=== PATIENT | female | born 1935 | race Caucasian/White ===

== ENCOUNTER 2020-08-07 11:21 | Emergency (ER) | payer OTHER ==
[~2020-08-07] VITALS: Ht 162.6 cm; Wt 49.9 kg
[2020-08-07 11:32] VITALS: BP 99/55
--- NOTE | 2020-08-07 11:32 | NUR ---
ED Nurse Note: Brought in by ambulance on gurney, pt is pale resposive to light pain, doesn't answer questions appropriatly, states "no no no no" to all questions asked. Pt is pale, skin is dry SR per tele monitor. Vital signs stable as documented. moves all four extremities. Breathing is unlabored, no signs of distress noted.
[2020-08-07 11:40] LABS: BASOPHILS % (AUTO) 0.7 % (0.0-2.0); EOSINOPHILS % (AUTO) 0.5 % (0.0-3.0); HEMATOCRIT 39.9 % (37.0-47.0); HEMOGLOBIN 13.3 G/DL (12.0-16.0); LYMPHOCYTES % (AUTO) 25.1 % (20.0-45.0); MEAN CORPUSCULAR VOLUME 91 FL (80-99); NEUTROPHILS % (AUTO) 63.8 % (45.0-75.0); PLATELET COUNT 226 K/UL (150-450); RED BLOOD COUNT 4.36 M/UL (4.20-5.40); RED CELL DISTRIBUTION WIDTH 13.6 % (11.6-14.8); WHITE BLOOD COUNT 4.5 K/UL (4.8-10.8)
[2020-08-07 11:49] LABS: CALCIUM 9.1 MG/DL (8.5-10.1); CREATININE 1.4 MG/DL (0.55-1.30); POTASSIUM 4.3 MMOL/L (3.5-5.1)
[2020-08-07 12:02] LABS: ALBUMIN 3.4 G/DL (3.4-5.0); ALBUMIN/GLOBULIN RATIO 0.7 (1.0-2.7); BILIRUBIN,TOTAL 0.2 MG/DL (0.2-1.0)
--- NOTE | 2020-08-07 12:20 | NUR ---
ED Nurse Note: Spoke with the son Claritza Dunne [phone] and [phone] at [facility]. Updated on condition. IV lines placed, Chest xray done, straight cath needed for ua, labs sent. Pt is resting comfortably, no signs of distress.
[2020-08-07 12:28] LABS: APPEARANCE,URINE SLIGHTLY CLOUDY; BILIRUBIN, URINE NEGATIVE (NEGATIVE); GLUCOSE, URINE (UA) NEGATIVE (NEGATIVE); KETONES,URINE NEGATIVE (NEGATIVE); LEUKOCYTE ESTERASE ,URINE 2+ (NEGATIVE); NITRITE,URINE POSITIVE (NEGATIVE); PH,URINE 6 (4.5-8.0); PROTEIN,URINE 2+ (NEGATIVE); UROBILINOGEN,URINE NORMAL MG/DL (0.0-1.0)
[2020-08-07 12:36] LABS: COLOR,URINE YELLOW
--- NOTE | 2020-08-07 14:05 | Emergency Room Report ---
History of Present Illness General Chief Complaint: Syncope Source: Family Member, Medical Record, EMS Present Illness HPI 85-year-old female presents to ED for syncopal episode. Brought in by EMS from [facility]. Had a witnessed syncopal episode in her wheelchair. No fall. Is alert oriented x1 by baseline. Per son patient is at her baseline. Unable provide any additional history at this time. No signs of distress. No other aggravating relieving factors. No other associated symptoms Allergies: Uncoded Allergies: NEOSPORIN (Allergy, Unknown, 08/07/20) PENICILLIN (Allergy, Unknown, 08/07/20) COVID-19 Screening Contact w/high risk pt: No Experienced COVID-19 symptoms?: No COVID-19 Testing performed PROBATION WORKER: No Patient History Past Medical History: HTN, dementia, psych hx Past Surgical History: none Pertinent Family History: none Social History: Denies: smoking, alcohol use, drug use Now: No Immunizations: UTD Reviewed Nursing Documentation: PMH: Agreed; PSxH: Agreed Review of Systems All Other Systems: limited Physical Exam Vital Signs Date Time Temp Pulse Resp B/P (MAP) Pulse Ox O2 Delivery O2 Flow Rate FiO2 08/07/20 11:08 98.2 73 19 110/50 (70) 98 Room Air Sp02 EP Interpretation: reviewed, normal General Appearance: other - Nonverbal Head: normocephalic Eyes: bilateral eye normal inspection, bilateral eye PERRL ENT: normal ENT inspection Neck: normal inspection Respiratory: chest non-tender, lungs clear, normal breath sounds, speaking full sentences Cardiovascular #1: regular rate, rhythm, no edema Gastrointestinal: normal bowel sounds, non tender, soft, non-distended, no guarding, no rebound Rectal: deferred Genitourinary: no CVA tenderness Musculoskeletal: normal inspection Neurologic: other - Nonverbal Psychiatric: other - Nonverbal Skin: other - See nursing notes Lymphatic: normal inspection Medical Decision Making Diagnostic Impression: Primary Impression: Syncope Qualified Codes: R55 - Syncope and collapse Additional Impressions: UTI (urinary tract infection) Qualified Codes: N39.0 - Urinary tract infection, site not specified Renal insufficiency ER Course Hospital Course 85-year-old F presents ED s/p syncopal episode. Differential diagnoses include: NJ/unstable angina, arrythmia, dehydration, CVA/TIA Clinical course Patient placed on stretcher. on warehouse loader. After initial history and physical I ordered labs, EKG, chest x-ray, IVFs labs reviewed- leukopenia, hemoglobin/hematocrit ok, Cr 1.4, trop negative, UA+ bacteria EKG- NSR, PVC noted Chest x-ray- no acute process Fluids given. Antibiotics given. Discussed with son at bedside. States that patient is DNR, comfort. Would still prefer patient be admitted Because of insurance patient will be transferred to [facility]. I feel this is a highly complex case requiring extensive working including EKG/Rhythm strip, Xray/CT/US, Blood/urine lab work, repeat exams while in ED, and administration of strong opiates/narcotics for pain control, admission to hospital or close patient follow up. Diagnosis - syncope, UTI, renal insufficiency transferred in serious condition Laboratory Tests Test 08/07/20 11:25 08/07/20 12:07 08/07/20 12:15 White Blood Count 4.5 K/UL (4.8-10.8) L Red Blood Count 4.36 M/UL (4.20-5.40) Hemoglobin 13.3 G/DL (12.0-16.0) Hematocrit 39.9 % (37.0-47.0) Mean Corpuscular Volume 91 FL (80-99) Mean Corpuscular Hemoglobin 30.5 PG (27.0-31.0) Mean Corpuscular Hemoglobin Concent 33.3 G/DL (32.0-36.0) Red Cell Distribution Width 13.6 % (11.6-14.8) Platelet Count 226 K/UL (150-450) Mean Platelet Volume 7.9 FL (6.5-10.1) Neutrophils (%) (Auto) 63.8 % (45.0-75.0) Lymphocytes (%) (Auto) 25.1 % (20.0-45.0) Monocytes (%) (Auto) 10.0 % (1.0-10.0) Eosinophils (%) (Auto) 0.5 % (0.0-3.0) Basophils (%) (Auto) 0.7 % (0.0-2.0) Sodium Level 140 MMOL/L (136-145) Potassium Level 4.3 MMOL/L (3.5-5.1) Chloride Level 104 MMOL/L (98-107) Carbon Dioxide Level 27 MMOL/L (21-32) Anion Gap 10 mmol/L (5-15) Blood Urea Nitrogen 25 mg/dL (7-18) H Creatinine 1.4 MG/DL (0.55-1.30) H Estimat Glomerular Filtration Rate 35.5 mL/min (>60) Glucose Level 119 MG/DL (74-106) H Calcium Level 9.1 MG/DL (8.5-10.1) Total Bilirubin 0.2 MG/DL (0.2-1.0) Aspartate Amino Transf (AST/SGOT) 40 U/L (15-37) H Alanine Aminotransferase (ALT/SGPT) 20 U/L (12-78) Alkaline Phosphatase 99 U/L (46-116) Troponin I 0.004 ng/mL (0.000-0.056) Pro-B-Type Natriuretic Peptide 303 pg/mL (0-125) H Total Protein 8.1 G/DL (6.4-8.2) Albumin 3.4 G/DL (3.4-5.0) Globulin 4.7 g/dL Albumin/Globulin Ratio 0.7 (1.0-2.7) L Urine Color Yellow Urine Appearance Slightly cloudy Urine pH 6 (4.5-8.0) Urine Specific [place] 1.015 (1.005-1.035) Urine Protein 2+ (NEGATIVE) H Urine Glucose (UA) Negative (NEGATIVE) Urine Ketones Negative (NEGATIVE) Urine Blood 1+ (NEGATIVE) H Urine Nitrite Positive (NEGATIVE) H Urine Bilirubin Negative (NEGATIVE) Urine Urobilinogen Normal MG/DL (0.0-1.0) Urine Leukocyte Esterase 2+ (NEGATIVE) H Urine RBC 0-2 /HPF (0 - 2) Urine WBC 20-30 /HPF (0 - 2) H Urine Squamous Epithelial Cells Few /LPF (NONE/OCC) Urine Bacteria Many /HPF (NONE) H Lactic Acid Level 1.20 mmol/L (0.4-2.0) EKG Diagnostic Results Troponin ordered: Yes Rate: normal Rhythm: NSR ST Segments: no acute changes ASA given to the pt in ED: No Rhythm Strip Diag. Results EP Interpretation: yes Rhythm: NSR, other - PVC Chest X-Ray Diagnostic Results Chest X-Ray Diagnostic Results : Chest X-Ray Ordered: Yes # of Views/Limited/Complete: 1 View Indication: Other - syncope EP Interpretation: Yes Interpretation: no consolidation, no effusion, no pneumothorax, no acute cardiopulmonary disease Impression: No acute disease Electronically Signed by: Electronically signed by Dickson Kaur MD Last Vital Signs Date Time Temp Pulse Resp B/P (MAP) Pulse Ox O2 Delivery O2 Flow Rate FiO2 08/07/20 11:32 98.2 78 20 99/55 99 Room Air Status: improved Disposition: SHORT-TERM HOSP Condition: Serious Referrals: NON PHYSICIAN (PCP) Dickson Kaur MD Aug 07, 2020 14:05
[2020-08-07 14:38] VITALS: BP 138/68
--- NOTE | 2020-08-07 14:38 | NUR ---
ED Nurse Note: pt moved to trauma room due to Covid positive.
--- NOTE | 2020-08-07 14:40 | NUR ---
ED Nurse Note: NASIR spoke to the facility and family to inform pt is positive for Covid.
--- NOTE | 2020-08-07 15:00 | Diagnostic Imaging Report ---
Indication: Chest pain Technique: One view of the chest Comparison: none Findings: Questionable streaky opacities are seen in the left perihilar region and in the right upper lung. The remainder of the lungs and pleural spaces are clear. Normal heart size. Impression: Very questionable bilateral streaky opacities, if real possibly representing multifocal pneumonia. Correlate with clinical findings
--- NOTE | 2020-08-07 15:58 | NUR ---
ED Nurse Note: report given to COREY Thompson at .
--- NOTE | 2020-08-07 16:14 | NUR ---
ED Nurse Note: transportation PRN arrived.
--- NOTE | 2020-08-07 16:15 | NUR ---
ED Nurse Note: report given to COREY Carreon.
--- NOTE | 2020-08-07 16:40 | NUR ---
ED Nurse Note: pt left unit with 2 EMT and 1 RN in stable condition.
[2020-08-07 16:41] VITALS: BP 158/72
--- NOTE | 2020-08-10 13:05 | Cardiology Report ---
APPROVED REPORT EKG Measurement Heart [id number] <Conclusion> Sinus rhythm with occasional premature ventricular complexes Nonspecific T wave abnormality Abnormal ECG
== END 2020-08-07 16:40 | disposition short-term general hospital (02) ==
LOC: EDBD 11:21 → EMR 12:15
DX: R55 Syncope and collapse (principal); N39.0 Urinary tract infection, site not specified; N28.9 Disorder of kidney and ureter, unspecified; Z88.0 Allergy status to penicillin; Z88.8 Allergy status to other drugs, medicaments and biological substances
CPT/HCPCS: 36415; 71045; 80053; 81003; 83605; 83880; 84484; 85025; 87040; 87086; 87181; 93005; 96361; 96365; 99284; J1956; J7030; J7040; U0002